=== PATIENT | female | born 1955 | race Caucasian/White ===

== ENCOUNTER 2018-07-01 10:57 | Emergency (ER) | payer MEDICAID, SELFPAY ==
[2018-07-01] MEDS ORDERED: Ondansetron ODT 8 MG TAB ONE (11:16)
== END 2018-07-01 11:32 | disposition home or self-care (01) ==
LOC: ERS 10:57
DX: J01.90 Acute sinusitis, unspecified (principal); M19.90 Unspecified osteoarthritis, unspecified site; F32.9 Major depressive disorder, single episode, unspecified; F41.9 Anxiety disorder, unspecified; F43.10 Post-traumatic stress disorder, unspecified; E66.9 Obesity, unspecified; Z87.891 Personal history of nicotine dependence
CPT/HCPCS: 99283

== ENCOUNTER 2018-07-22 09:06 | Emergency (ER) | payer SELFPAY ==
[2018-07-22] MEDS ORDERED: Metoclopramide HCl 10 MG/2 ML VIAL ONE (09:56)
[2018-07-22] MEDS ORDERED: diphenhydrAMINE 50 MG/ML VIAL ONE (09:56)
[2018-07-22 10:00] LABS: #Eosinphils 0.2 thou/uL (0.0-0.7); #Lymphocytes 1.2 thou/uL (1.20-3.40); #Monocytes 0.4 thou/uL (0.11-0.59); #Neutrophils 4.8 thou/uL (1.40-6.50); %Basophils 0.4 % (0.0-1.0); %Eosinophils 2.6 % (0.0-10.0); %Lymphocytes 18.6 % (21.0-51.0); %Monocytes 5.9 % (0.0-10.0); %Neutrophils 72.5 % (42.0-75.0); Hemoglobin 13.2 g/dL (12.0-16.0); Mean Corpuscular Volume 84.5 fL (78.0-98.0); Mean Platelet Volume 8.6 fL (7.4-10.4); Platelet Count 245 thou/uL (130-400); RBC Distribution Width 13.9 % (11.5-14.5); Red Blood Cell (RBC) Count 4.89 mill/uL (4.20-5.40); White Blood Cell (WBC) Count 6.6 thou/uL (4.8-10.8)
--- NOTE | 2018-07-22 10:03 | RAD ---
CHEST 1 VIEW: Date: 07/22/18 HISTORY: Severe generalized weakness, slurred speech. COMPARISON: 09/06/14. FINDINGS: Monitor leads overlie the chest. Heart size is within normal limits. The lungs are clear. IMPRESSION: No acute intrathoracic disease. Stable from prior study. POS: [facility]
[2018-07-22 10:25] LABS: ALT (SGPT) 21 U/L (8-55); AST (SGOT) 19 U/L (5-34); Albumin 3.6 g/dL (3.4-4.8); Alkaline Phosphatase 80 U/L (40-150); Anion Gap 15 mmol/L (10-20); BUN (Urea Nitrogen) 19 mg/dL (9.8-20.1); Bilirubin, Total 0.4 mg/dL (0.2-1.2); CK (CPK) 91 U/L (29-168); Calc. Creatinine Clearance 0 mL/min (70-130); Calcium 9.5 mg/dL (7.8-10.44); Carbon Dioxide 23 mmol/L (23-31); Chloride 105 mmol/L (98-107); Estimated GFR-MDRD 67; Globulin 3.7 g/dL (2.4-3.5); Glucose 106 mg/dL (80-115); Potassium 4.1 mmol/L (3.5-5.1); Protein, Total 7.3 g/dL (6.0-8.3); Sodium 139 mmol/L (136-145)
--- NOTE | 2018-07-22 11:02 | CT ---
NONCONTRAST CT HEAD: Date: 07/22/18 HISTORY: Headache and generalized weakness. Blurry vision. FINDINGS: There is no evidence of a hemorrhage, acute infarction, mass effect, or midline shift. A few subtle l ow density areas are scattered within the periventricular white matter which are nonspecific but like ly reflective of mild chronic small vessel ischemic changes. There are scattered lucencies seen within the calvarium, predominantly at the vertex, stable when com pared to study in 2016, suggesting benign findings. IMPRESSION: No acute intracranial abnormalities demonstrated. POS: [facility]
== END 2018-07-22 11:23 | disposition home or self-care (01) ==
LOC: ERS 09:06
DX: R53.1 Weakness (principal); R42 Dizziness and giddiness; R51 Headache; M19.90 Unspecified osteoarthritis, unspecified site; E66.9 Obesity, unspecified; F41.9 Anxiety disorder, unspecified; F43.10 Post-traumatic stress disorder, unspecified; Z87.891 Personal history of nicotine dependence
CPT/HCPCS: 36415; 70450; 71045; 80053; 82550; 83880; 84484; 85025; 93005; 96365; 96375; J1200; J2765

== ENCOUNTER 2020-03-17 14:35 | Outpatient (CLI) | payer OTHER ==
--- NOTE | 2020-03-17 14:59 | RAD ---
XR Knee Lt 4 View STANDARD HISTORY: Left anterior knee pain FINDINGS: No fracture or dislocation is identified. Mild degenerative changes are present.
== END 2020-03-17 14:36 | disposition home or self-care (01) ==
LOC: BICRAD 14:35
PROVIDERS: ATTEND Family Medicine
DX: M25.562 Pain in left knee (principal)

== ENCOUNTER 2021-11-07 13:56 | Outpatient (CLI) | payer MEDICARE | END 2021-11-07 13:57 | disposition home or self-care (01) | LOC: BICMAMMO 13:56 | PROVIDERS: ATTEND Family Medicine | DX: Z13.820 Encounter for screening for osteoporosis (principal); Z78.0 Asymptomatic menopausal state | CPT/HCPCS: 77080 ==

== ENCOUNTER 2022-03-30 05:43 | Day surgery (SDC) | payer MEDICARE ==
[2022-03-29 12:23] VITALS: BMI 51.3
[2022-03-30] MEDS ORDERED: Midazolam HCl 2 mg/2 ml Vial ONE (06:53)
[2022-03-30] MEDS ORDERED: PROPOFOL 200 MG/20 ML VIAL ONE (08:27)
[2022-03-30] MEDS ORDERED: Lidocaine 1% MPF 2 ML VIAL ONE (08:27)
== END 2022-03-30 10:12 | disposition home or self-care (01) ==
LOC: SDC 05:43
PROVIDERS: ATTEND Internal Medicine Gastroenterology
PROC: 0DB98ZX Excision of Duodenum, Via Natural or Artificial Opening Endoscopic, Diagnostic (ICD-10-PCS; principal; 2022-03-30)
PROC: 0DB68ZX Excision of Stomach, Via Natural or Artificial Opening Endoscopic, Diagnostic (ICD-10-PCS; 2022-03-30)
PROC: 0DBG8ZX Excision of Left Large Intestine, Via Natural or Artificial Opening Endoscopic, Diagnostic (ICD-10-PCS; 2022-03-30)
PROC: 0DBF8ZX Excision of Right Large Intestine, Via Natural or Artificial Opening Endoscopic, Diagnostic (ICD-10-PCS; 2022-03-30)
DX: K57.30 Diverticulosis of large intestine without perforation or abscess without bleeding (principal); K52.9 Noninfective gastroenteritis and colitis, unspecified; K63.3 Ulcer of intestine; K64.4 Residual hemorrhoidal skin tags; K29.90 Gastroduodenitis, unspecified, without bleeding; K31.A0 Gastric intestinal metaplasia, unspecified; K21.9 Gastro-esophageal reflux disease without esophagitis; I10 Essential (primary) hypertension; E78.00 Pure hypercholesterolemia, unspecified; E66.01 Morbid (severe) obesity due to excess calories; Z68.43 Body mass index [BMI] 50.0-59.9, adult; Z79.82 Long term (current) use of aspirin; Z79.899 Other long term (current) drug therapy; Z88.5 Allergy status to narcotic agent; Z87.891 Personal history of nicotine dependence
CPT/HCPCS: 88305; 88342; J2250; J2704

== ENCOUNTER 2022-06-07 13:45 | Inpatient (IN) | payer MEDICARE ==
[2022-06-07 11:11] VITALS: BMI 47.2
[2022-06-08] MEDS ORDERED: fentaNYL PF 100 MCG/2 ML SYRINGE ONE (06:42)
[2022-06-08] MEDS ORDERED: Bupivacaine/Epinephrine 0.25% 30 ML VIAL ONE (06:54)
[2022-06-08] MEDS ORDERED: Ketorolac Tromethamine 30 MG/ML VIAL ONE (07:15)
[2022-06-08] MEDS ORDERED: Heparin 5,000 UNITS/ML VIAL ONE (07:15)
[2022-06-08] MEDS ORDERED: cefOXitin 2 GM VIAL ONE (07:23)
[2022-06-08] MEDS ORDERED: Sodium Chloride 0.9% 100 ML ONE (07:23)
[2022-06-08] MEDS ORDERED: NEOSTIGMINE 3 MG/3 ML SYR 3 MG/3 ML SYRINGE ONE (07:31)
[2022-06-08] MEDS ORDERED: ePHEDrine 50 MG/ML VIAL ONE (07:31)
[2022-06-08] MEDS ORDERED: Ondansetron PF 4 MG/2 ML Vial ONE ×2 (07:31→10:57)
[2022-06-08] MEDS ORDERED: Dexamethasone 20 MG/5 ML VIAL ONE (07:31)
[2022-06-08] MEDS ORDERED: Glycopyrrolate 0.2 MG/ML 5 ML SYRINGE ONE (07:31)
[2022-06-08] MEDS ORDERED: PROPOFOL 200 MG/20 ML VIAL ONE (07:31)
[2022-06-08] MEDS ORDERED: Rocuronium Bromide 10 MG/ML (10ML VIAL) ONE (07:31)
[2022-06-08] MEDS ORDERED: Phenylephrine 10 MG/ML VIAL ONE (07:31)
[2022-06-08 07:32] LABS: SARS-CoV-2 NAA Rapid Test Not Detected (NotDetected)
[2022-06-08] MEDS ORDERED: FENTANYL 50 MCG/ML 1 ML VIAL ONE ×4 (10:36→11:30)
[2022-06-08] MEDS ORDERED: Dextrose 5% in Water 1,000 ML IV PRN (11:25)
[2022-06-08] MEDS ORDERED: Morphine 4 MG/ML VIAL SLOW IVP PRN ×2 (11:25→11:37)
[2022-06-08] MEDS ORDERED: hydrALAZINE 20 MG/ML VIAL SLOW IVP PRN (11:25)
[2022-06-08] MEDS ORDERED: Ondansetron PF 4 MG/2 ML Vial IVP PRN (11:25)
[2022-06-08] MEDS ORDERED: Promethazine HCl 25 MG/ML VIAL IM PRN (11:25)
[2022-06-08] MEDS ORDERED: diphenhydrAMINE 50 MG/ML VIAL IVP PRN (11:25)
[2022-06-08] MEDS ORDERED: Dextrose 50% Abboject 50 ML SYRINGE SLOW IVP PRN (11:25)
[2022-06-08] MEDS: Ketorolac Tromethamine 30 MG/ML VIAL IVP SCH ×2 (12:52→17:22)
[2022-06-08] MEDS: D5 1/2 NS w/20 mEq KCL 1,000 ML IV SCH ×2 (12:52→20:00)
[2022-06-08] MEDS: Carvedilol 6.25 MG TAB PO SCH (17:25)
[2022-06-08] MEDS: Hydrocodone-Acetamin 15 ML UDCUP PO PRN (20:01)
[2022-06-08] MEDS ORDERED: Atorvastatin Calcium 40 MG TAB PO SCH (21:00)
[2022-06-08] MEDS ORDERED: Enoxaparin Sodium 40 MG/0.4 ML SYRINGE SC SCH (21:00)
[2022-06-09] MEDS: Ketorolac Tromethamine 30 MG/ML VIAL IVP SCH ×3 (00:47→16:14)
[2022-06-09] MEDS: D5 1/2 NS w/20 mEq KCL 1,000 ML IV SCH ×2 (03:30→13:24)
[2022-06-09] MEDS: Hydrocodone-Acetamin 15 ML UDCUP PO PRN ×3 (03:31→14:22)
[2022-06-09 06:25] LABS: #Monocytes 0.8 thou/uL (0.11-0.59); #Neutrophils 11.4 thou/uL (1.40-6.50); %Lymphocytes 7.2 % (21.0-51.0); %Monocytes 5.8 % (0.0-10.0); %Neutrophils 86.9 % (42.0-75.0); Hemoglobin 11.8 g/dL (12.0-16.0); Mean Corpuscular HGB CONC 31.7 g/dL (32.0-36.0); Mean Corpuscular Hemoglobin 28.1 pg (27.0-31.0); Mean Corpuscular Volume 88.5 fl (78.0-98.0); Mean Platelet Volume 10.1 fL (7.4-10.4); Platelet Count 179 10x3/uL (130-400); RBC Distribution Width 14.3 % (11.5-14.5); Red Blood Cell (RBC) Count 4.19 mill/uL (4.20-5.40); White Blood Cell (WBC) Count 13.2 10x3/uL (4.8-10.8)
[2022-06-09 06:48] LABS: Anion Gap 11 mmol/L (10-20); BUN (Urea Nitrogen) 13 mg/dL (9.8-20.1); Calc. Creatinine Clearance 132 mL/min (70-130); Calcium 8.3 mg/dL (7.8-10.44); Carbon Dioxide 24 mmol/L (23-31); Chloride 106 mmol/L (98-107); Estimated GFR 81; Glucose 135 mg/dL (80-115); Potassium 4.4 mmol/L (3.5-5.1); Sodium 137 mmol/L (136-145)
[2022-06-09] MEDS: Carvedilol 6.25 MG TAB PO SCH (08:55)
[2022-06-09] MEDS ORDERED: Pantoprazole 40 MG VIAL IVP SCH (09:00)
[2022-06-09] MEDS ORDERED: Escitalopram Oxalate 20 mg Tablet PO SCH (09:00)
[2022-06-09 12:41] VITALS: TEMP 97.8
[2022-06-09 14:21] VITALS: BP 109/71
== END 2022-06-09 14:25 | disposition home or self-care (01) | DRG 621 ==
LOC: SURG A 06-08 06:12
PROVIDERS: ADMIT Specialist; ATTEND Specialist
PROC: 0D164ZA Bypass Stomach to Jejunum, Percutaneous Endoscopic Approach (ICD-10-PCS; principal; 2022-06-08)
DX: E66.01 Morbid (severe) obesity due to excess calories (principal); Z20.822 Contact with and (suspected) exposure to COVID-19; F41.9 Anxiety disorder, unspecified; M19.90 Unspecified osteoarthritis, unspecified site; I10 Essential (primary) hypertension; E78.5 Hyperlipidemia, unspecified; F31.9 Bipolar disorder, unspecified; G89.29 Other chronic pain; Z79.82 Long term (current) use of aspirin; Z68.42 Body mass index [BMI] 45.0-49.9, adult; Z79.899 Other long term (current) drug therapy; Z90.49 Acquired absence of other specified parts of digestive tract; Z90.710 Acquired absence of both cervix and uterus; Z88.5 Allergy status to narcotic agent; Z87.891 Personal history of nicotine dependence
CPT/HCPCS: 36415; 80048; 85025; 93005; A4649; C1889; C9113; J0694; J1100; J1644; J1650; J1885; J2270; J2370; J2405; J2704; J3010; J3480; J3490; U0002

== ENCOUNTER 2022-06-07 13:52 | Outpatient (CLI) | payer MEDICARE ==
[2022-06-07 15:13] LABS: #Eosinphils 0.2 10x3/uL (0.0-0.5); #Monocytes 0.4 10x3/uL (0.0-1.1); %Basophils 0.4 % (0.0-2.0); %Eosinophils 1.9 % (0.0-6.0); %Lymphocytes 17.8 % (18.0-47.0); %Monocytes 5.2 % (0.0-10.0); %Neutrophils 74.3 % (40.0-75.0); Hemoglobin 13.1 g/dL (12.0-15.5); Mean Corpuscular HGB CONC 31.3 g/dL (32.0-36.0); Mean Corpuscular Hemoglobin 26.8 pg (27.0-33.0); Mean Corpuscular Volume 85.7 fl (81.6-98.3); Mean Platelet Volume 11.8 fl (7.4-10.4); Platelet Count 231 10x3/uL (150-450); RBC Distribution Width 15.2 % (11.5-14.5); Red Blood Cell (RBC) Count 4.89 10x6/uL (3.90-5.03); White Blood Cell (WBC) Count 8.1 10x3/uL (3.5-10.5)
[2022-06-07 16:00] LABS: Anion Gap 14 mmol/L (10-20); BUN (Urea Nitrogen) 13 mg/dL (9.8-20.1); Calc. Creatinine Clearance 0 mL/min (70-130); Calcium 9.7 mg/dL (7.8-10.44); Carbon Dioxide 29 mmol/L (23-31); Chloride 105 mmol/L (98-107); Estimated GFR 65; Glucose 97 mg/dL (80-115); Potassium 4.2 mmol/L (3.5-5.1); Sodium 144 mmol/L (136-145)
== END 2022-06-07 13:53 | disposition home or self-care (01) ==
LOC: LABBT 13:52
PROVIDERS: ATTEND Specialist
DX: Z01.818 Encounter for other preprocedural examination (principal); E66.01 Morbid (severe) obesity due to excess calories; K21.9 Gastro-esophageal reflux disease without esophagitis; R19.7 Diarrhea, unspecified
CPT/HCPCS: 80048; 85025; 93005; 93010

== ENCOUNTER 2022-07-25 10:10 | Outpatient (CLI) | payer MEDICARE | END 2022-07-25 10:11 | disposition home or self-care (01) | LOC: RAD 10:10 | PROVIDERS: ATTEND Specialist | DX: Z48.815 Encounter for surgical aftercare following surgery on the digestive system (principal); Z98.84 Bariatric surgery status | CPT/HCPCS: 74246 ==

== ENCOUNTER 2022-10-18 13:19 | Outpatient (CLI) | payer MEDICARE | END 2022-10-18 13:20 | disposition home or self-care (01) | LOC: BICRAD 13:19 | PROVIDERS: ATTEND Family Medicine | DX: M25.511 Pain in right shoulder (principal); M25.811 Other specified joint disorders, right shoulder ==

== ENCOUNTER 2023-08-08 13:20 | Outpatient (CLI) | payer MEDICARE | END 2023-08-08 13:21 | disposition home or self-care (01) | LOC: BICMRI 13:20 | PROVIDERS: ATTEND Orthopaedic Surgery | DX: M75.111 Incomplete rotator cuff tear or rupture of right shoulder, not specified as traumatic (principal); M19.011 Primary osteoarthritis, right shoulder; M67.813 Other specified disorders of tendon, right shoulder ==

== ENCOUNTER 2023-12-26 13:14 | Outpatient (CLI) | payer MEDICARE | END 2023-12-26 13:15 | disposition home or self-care (01) | LOC: BICMAMMO 13:14 | PROVIDERS: ATTEND Family Medicine | DX: Z12.31 Encounter for screening mammogram for malignant neoplasm of breast (principal); Z13.820 Encounter for screening for osteoporosis; Z78.0 Asymptomatic menopausal state; Z91.89 Other specified personal risk factors, not elsewhere classified; M85.89 Other specified disorders of bone density and structure, multiple sites | CPT/HCPCS: 77063; 77067; 77080 ==

== ENCOUNTER 2024-04-09 12:48 | Outpatient (CLI) | payer MEDICARE ==
[~2024-04-09 12:48] MED LIST: Magnevist 469MG/ML 20 ML VIAL ONE
== END 2024-04-09 12:49 | disposition home or self-care (01) ==
LOC: MRI 12:48
PROVIDERS: ATTEND Family Medicine
DX: G44.89 Other headache syndrome (principal); R42 Dizziness and giddiness; R26.81 Unsteadiness on feet; R90.89 Other abnormal findings on diagnostic imaging of central nervous system; G93.9 Disorder of brain, unspecified; I67.9 Cerebrovascular disease, unspecified
CPT/HCPCS: 70553; 76376

== ENCOUNTER 2024-08-15 11:40 | Outpatient (CLI) | payer MEDICARE | END 2024-08-15 11:41 | disposition home or self-care (01) | LOC: ULT 11:40 | PROVIDERS: ATTEND Family Medicine | DX: E04.2 Nontoxic multinodular goiter (principal) | CPT/HCPCS: 76536 ==